=== PATIENT | male | born 1985 | race Caucasian/White ===

== ENCOUNTER → 2019-11-23 | Outpatient (CLI) | payer OTHER ==
[2019-11-23 16:10] LABS: Leuteinizing Hormone 4.9 IU/L (1.5-9.3); Prolactin 7.98 ng/mL (2.8-29.2)
[2019-11-23 16:11] LABS: Follicle Stimulating Hormone 2.95 IU/L (1.4-18.1)
== END | disposition home or self-care (01) ==
LOC: LAB 15:18
PROVIDERS: ATTEND Urology
DX: E29.1 Testicular hypofunction (principal)
CPT/HCPCS: 83001; 83002; 84146